=== PATIENT | male | born 1960 | race Caucasian/White ===

== ENCOUNTER 2018-09-19 14:04 | Outpatient (CLI) | payer OTHER ==
--- NOTE | 2018-09-19 15:07 | MRI ---
MRI Lower Ext Jt Rt WO Con HISTORY: Right knee pain and swelling x1 year COMPARISON: None. FINDINGS: The anterior as well as posterior cruciate ligaments are intact. There is a small undersurface tear involving the body of the medial meniscus near the apex of the men iscus. The lateral meniscus shows a radial tear involving the posterior horn it measures approximately 5 mm in transverse dimension and the depth is approximately 4 mm. The medial and lateral collateral ligaments and iliotibial band regions are normal. 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 Moderate articular cartilage loss involving the medial femoral condyle with some grade IV chondromala lina change and subchondral cystic changes involving the more central articular surface. The medial and lateral patellar retinaculum and quadriceps and patellar tendons are normal in appeara nce. IMPRESSION: 1. Radial tear involving the posterior horn of the lateral meniscus. 2. Very small undersurface tear of the body of the medial meniscus. 3. There is a moderate articular cartilage loss involving the medial facet of the patella and medial femoral condyle.
== END 2018-09-19 14:05 | disposition home or self-care (01) ==
LOC: SCSMRI 14:04
PROVIDERS: ATTEND Family Medicine
DX: M25.461 Effusion, right knee (principal); S83.241A Other tear of medial meniscus, current injury, right knee, initial encounter; S83.281A Other tear of lateral meniscus, current injury, right knee, initial encounter